=== PATIENT | female | born 1950 | race Caucasian/White ===

== ENCOUNTER 2019-03-22 05:33 | Day surgery (SDC) | payer OTHER ==
[~2019-03-22 05:33] MED LIST: ASPIR 8181 MG PO; ATACAND32 MG PO; ATORVASTATIN CA80 MG PO; CARDURA8 MG PO; FAMOTIDINE40 MG PO; FOLGARD TABLET1 EACH PO; FORTAMET500 MG PO; GABAPENTIN600 MG PO; ISORBIDE PO; MULTIVITAMINS1 EAC9 PO; VERAPAMIL ER180 MG PO
[2019-03-22] MEDS ORDERED: MACROBID 100 M100 MG PO (09:22)
[2019-03-22] MEDS ORDERED: ULTRACET PO (09:23)
== END 2019-03-22 13:36 | disposition home or self-care (01) ==
LOC: CIR.AMB 05:33
DX: N81.11 Cystocele, midline (principal)

== ENCOUNTER 2020-04-03 05:00 | Day surgery (SDC) | payer OTHER ==
[~2020-04-03 05:00] MED LIST changes: +ALLOPURINOL100 MG PO; +AMITRIPTYLINE H50 MG PO; +MACROBID 100 M100 MG PO; +ULTRACET PO
[2020-04-03] MEDS ORDERED: MACROBID 100 M100 MG PO (09:47)
[2020-04-03] MEDS ORDERED: ULTRACET PO (09:47)
== END 2020-04-03 12:55 | disposition home or self-care (01) ==
LOC: CIR.AMB 05:00
DX: N81.3 Complete uterovaginal prolapse (principal)

== ENCOUNTER 2023-09-11 08:03 | Outpatient (CLI) | payer OTHER | END 2023-09-11 08:05 | disposition home or self-care (01) | LOC: NUCLEAR 08:03 | PROVIDERS: ATTEND Internal Medicine | DX: I25.118 Atherosclerotic heart disease of native coronary artery with other forms of angina pectoris (principal); I11.9 Hypertensive heart disease without heart failure; E78.5 Hyperlipidemia, unspecified | CPT/HCPCS: 78452; 93017; A9500; J0153 ==

== ENCOUNTER 2023-09-22 06:32 | Day surgery (SDC) | payer OTHER ==
[~2023-09-22 06:32] MED LIST changes: +CARDURA XL4 MG PO; +CHILDREN'S ASPI81 MG PO; +METFORMIN HCL500 M3 PO; +PLAVIX75 MG PO
[2023-09-22] MEDS ORDERED: LEVOFLOXACIN250 MG PO (12:29)
[2023-09-22] MEDS ORDERED: TRAM1TAB98 PO (12:29)
== END 2023-09-22 15:19 | disposition home or self-care (01) ==
LOC: CIR.AMB 06:32
PROVIDERS: ATTEND Obstetrics & Gynecology Gynecology
DX: N32.81 Overactive bladder (principal); N39.41 Urge incontinence; R35.0 Frequency of micturition; Z88.0 Allergy status to penicillin; I10 Essential (primary) hypertension; Z20.822 Contact with and (suspected) exposure to COVID-19; E11.9 Type 2 diabetes mellitus without complications
CPT/HCPCS: 64590; 64581; 95972; C1767; C1778

== ENCOUNTER 2024-01-07 08:00 | Outpatient (CLI) | payer OTHER ==
[~2024-01-07 08:00] MED LIST changes: +LEVOFLOXACIN250 MG PO; +TRAM1TAB98 PO
== END 2024-01-07 08:01 | disposition home or self-care (01) ==
LOC: NUCLEAR 08:00
PROVIDERS: ATTEND Internal Medicine
DX: I73.9 Peripheral vascular disease, unspecified (principal); I11.9 Hypertensive heart disease without heart failure

== ENCOUNTER 2024-01-08 08:34 | Outpatient (CLI) | payer OTHER | END 2024-01-08 08:36 | disposition home or self-care (01) | LOC: NUCLEAR 08:34 | PROVIDERS: ATTEND Internal Medicine | DX: I73.9 Peripheral vascular disease, unspecified (principal); I11.9 Hypertensive heart disease without heart failure ==

== ENCOUNTER 2025-01-11 12:33 | Outpatient (CLI) | payer OTHER | END 2025-01-11 12:35 | disposition home or self-care (01) | LOC: RAD 12:33 | PROVIDERS: ATTEND Internal Medicine Cardiovascular Disease | DX: M70.10 Bursitis, unspecified hand (principal) ==

== ENCOUNTER 2025-01-19 10:48 | Outpatient (CLI) | payer OTHER | END 2025-01-19 10:49 | disposition home or self-care (01) | LOC: NUCLEAR 10:48 | PROVIDERS: ATTEND Internal Medicine | DX: I72.0 Aneurysm of carotid artery (principal) ==